=== PATIENT | male | born 1975 | race Caucasian/White ===

== ENCOUNTER → 2019-07-19 09:42 | Outpatient (CLI) | payer OTHER, SELFPAY | PROVIDERS: PCP Internal Medicine Adolescent Medicine; Visit Provider Internal Medicine Adolescent Medicine | DX: R06.09 Other forms of dyspnea (principal) | CPT/HCPCS: 94060; 94640; 94726; 94729 ==

== ENCOUNTER → 2021-08-02 12:52 | Outpatient (CLI) | payer OTHER, SELFPAY ==
[2021-08-03 08:58] LABS: Covid-19 Nasal PCR Sendout Lex NOT DETECTED
== END ==
PROVIDERS: Visit Provider Nurse Practitioner
DX: Z20.822 Contact with and (suspected) exposure to COVID-19 (principal)
CPT/HCPCS: C9803; U0004; U0005

== ENCOUNTER 2021-12-21 08:52 | Emergency (ER) | payer SELFPAY ==
[2021-12-21] VITALS (9 sets, daily range): BP systolic 122–140; BP diastolic 65–90; PULSE 56–90; RESP 15–18; TEMP 36.6–37.1; O2SAT 97–99; BMI 24.4
--- NOTE | 2021-12-21 08:50 | ECG_ITS ---
APPROVED REPORT Exam: Resting ECG HR:87 bpm ECG Measurements Heart Rate 87 AXES NJ 158 P 74 QRSd 92 QRS 87 QT 355 T 57 QTc 400 Conclusion SINUS RHYTHM NORMAL ECG UNCONFIRMED REPORT Electronically signed by : Gurwinder Chandra MD 12/21/2021 17:00:02
--- NOTE | 2021-12-21 08:53 | [facility].EDCP ---
ED Disposition Clinical Impression: Chest pain Qualifiers: Chest pain type: unspecified Qualified Code(s): R07.9 - Chest pain, unspecified Amphetamine adverse reaction Qualifiers: Encounter type: initial encounter Qualified Code(s): T43.625A - Adverse effect of amphetamines, initial encounter Disposition: Home, Self-Care Condition on Discharge: Fair Instructions: DI for Atypical Chest Pain, Getting Treatment for Substance Use Disorder, DI for Substance Use Disorder Referrals: Sravan Matute MD [Staff Physician] - - Critical Care Critical Care Time: No Attestation: On , the high probability of a clinically significant, sudden or life threatening deterioration of the following system(s) required my full and direct attention, intervention and personal management. The time I documented below is in addition to time spent performing reported procedures but includes the following listed in this critical care notation. Medical Decision Making - Medical Records Medical records reviewed: Yes: I reviewed the patient's medical records. - Shay Inquiry Pt receiving controlled substance: No Vital Signs: 12/21/21 08:52 12/21/21 09:08 12/21/21 09:38 Temperature 98.8 F Temperature Source Oral Pulse Rate 84 71 Pulse Rate [Radial] 90 Respiratory Rate 16 16 17 Blood Pressure 140/85 125/74 Blood Pressure [Right Radial Artery] 131/90 Blood Pressure Mean 103 91 Blood Pressure Mean [Right Radial Artery] 103 Blood Pressure Source Automatic Cuff Automatic Cuff Blood Pressure Position Sitting Sitting Blood Pressure Position [Right Radial Artery] Sitting 02 Sat by Pulse Oximetry 98 97 97 Oxygen Delivery Method Room Air Room Air Room Air 12/21/21 10:08 12/21/21 10:38 12/21/21 11:08 Temperature Temperature Source Pulse Rate 66 Pulse Rate [Radial] Respiratory Rate 16 17 18 Blood Pressure 134/77 127/74 135/84 Blood Pressure [Right Radial Artery] Blood Pressure Mean 90 89 96 Blood Pressure Mean [Right Radial Artery] Blood Pressure Source Automatic Cuff Automatic Cuff Blood Pressure Position Blood Pressure Position [Right Radial Artery] 02 Sat by Pulse Oximetry 99 98 98 Oxygen Delivery Method Room Air Room Air Room Air - Lab Data Lab results reviewed: Yes: I reviewed the patient's lab results. Lab Results 12/21/21 09:00: WBC 8.5, RBC 4.42 L, Hgb 14.1, Hct 39.6 L, MCV 89.7, MCH 31.9 H, MCHC 35.6 H, RDW 12.4, Plt Count 197, MPV 8.7, Neut % (Auto) 58.0, Lymph % (Auto) 30.7, Eddy % (Auto) 6.6, Eos % (Auto) 3.9, Baso % (Auto) 0.7, Neut # (Auto) 5.0, Lymph # (Auto) 2.6, Eddy # (Auto) 0.6, Eos # (Auto) 0.3, Baso # (Auto) 0.1 12/21/21 09:00: PT 10.9, INR 0.96, APTT 26.8 12/21/21 09:00: Sodium 140, Potassium 3.5, Chloride 108 H, Carbon Dioxide 25, Anion Gap 10.5, BUN 20, Creatinine 0.70, Estimated Creat Clear 146, Estimated GFR 121, Est GFR ( Amer) 146, Glucose 99, Calcium 9.0, Total Bilirubin 0.5, AST 26, ALT 20, Alkaline Phosphatase 86, Troponin I < 0.01, NT-Pro-B Natriuret Pep 11.5, Total Protein 6.7, Albumin 4.2, Globulin 2.5, Albumin/Globulin Ratio 1.7 12/21/21 09:03: Urine Color Yellow, Urine Appearance Clear, Urine pH 5.5, Ur Specific [place] >= 1.030, Urine Protein Negative, Urine Glucose (UA) Negative, Urine Ketones Negative, Urine Blood Negative, Urine Nitrate Negative, Urine Bilirubin Negative, Urine Urobilinogen 0.2, Ur Leukocyte Esterase Negative, Urine RBC None, Urine WBC Occasional, Ur Squamous Epith Cells Occasional, Urine Bacteria Trace, Urine Mucus 1+ 12/21/21 09:03: Urine Opiates Screen Negative, Urine Methadone Screen Negative, Ur Barbituates Screen Negative, Ur Phencyclidine Scrn Negative, Ur Amphetamines Screen Positive H, U Benzodiazepines Scrn Negative, Urine Cocaine Screen Negative, U Marijuana (THC) Screen Negative 12/21/21 11:08: Troponin I < 0.01 Result diagrams: 12/21/21 09:00 12/21/21 09:00 Orders (Tests/Meds): ED MEDICATIONS Generic Name Dose Route Start
--- NOTE | 2021-12-21 08:54 | PC.NURSE ---
SON LARA at
--- NOTE | 2021-12-21 08:56 | XR_ITS ---
FINAL REPORT CLINICAL HISTORY: CP, pt states that he has been experiencing chest pain, numbness in his left arm, and SOA starting this morning. Smoker FINDINGS: SINGLE-VIEW CHEST The heart size is normal. The mediastinum is normal. The lungs are clear. There is no pneumothorax. IMPRESSION: No acute cardiopulmonary process. Reviewed, Interpreted and Dictated by Ron Bryant III, MD Transcribed by Isabelle Lucero Authenticated and [facility]
--- NOTE | 2021-12-21 08:59 | PC.NURSE ---
ER at updating patient regarding EKG results
--- NOTE | 2021-12-21 09:01 | PC.NURSE ---
pt ambulatory to restroom without complications to provide UA
--- NOTE | 2021-12-21 09:04 | PC.NURSE ---
pt ambulatory back to ED room 7 without complications; Radiology at BS; UA sent to lab
[2021-12-21 09:09] LABS: Microscopic, Urine URINE MICROSCOPIC (MICROSCOPIC)
--- NOTE | 2021-12-21 09:10 | PC.NURSE ---
pt offered warm blankets, pt declined
[2021-12-21 09:12] LABS: Appearance,Urine CLEAR (Clear); Bilirubin,Urine Negative (Negative); Blood, Urine Negative (Negative); Color,Urine YELLOW (Yellow); Glucose,Urine (UA) Negative (Negative); Ketones,Urine Negative (Negative); Leukocyte Esterase,Urine Negative (Negative); Nitrate,Urine Negative (Negative); PH,Urine 5.5 (5.0-8.5); Protein,Urine Negative (Negative); Specific Gravity, Urine >= 1.030 (1.005-1.030); Urobilinogen,Urine 0.2 EU/dl (0.2)
[2021-12-21 09:15] LABS: Basophils # 0.1 K/mm3 (0-0.2); Basophils % 0.7 % (0.1-2.0); Eosinophils # 0.3 K/mm3 (0.0-0.4); Eosinophils % 3.9 % (0.1-12.0); Hematocrit 39.6 % (42.0-52.0); Hemoglobin 14.1 g/dL (14.1-18.0); Lymphocytes # 2.6 K/mm3 (0.7-4.5); Lymphocytes % 30.7 % (10-50); Mean Corpuscular HGB Conc 35.6 g/dL (31.8-35.4); Mean Corpuscular Hemoglobin 31.9 pg (27.0-31.2); Mean Corpuscular Volume 89.7 fl (80-94); Mean Platelet Volume 8.7 fl (7.4-10.4); Monocytes # 0.6 K/mm3 (0.1-1.0); Monocytes % 6.6 % (1.7-9.3); Platelet Count 197 K/mm3 (142-424); Red Blood Count 4.42 M/mm3 (4.60-6.20); Red Cell Distribution Width 12.4 % (11.5-17.5); White Blood Count 8.5 K/mm3 (4.8-10.8)
[2021-12-21 09:23] LABS: Chloride 108 mmol/L (98-107); Potassium 3.5 mmoL/L (3.5-5.1); Sodium 140 mmol/L (136-145)
[2021-12-21 09:25] LABS: Blood Urea Nitrogen 20 mg/dl (9-20); Creatinine Clearance Estimated 146 mL/min (50-200); Estimated Glomerular Filt Rate 121 ml/min (>60); GFR (African American) 146 ML/MIN (>60)
[2021-12-21 09:26] LABS: Alanine Aminotransferase 20 U/L (12-78); Albumin Level 4.2 g/dl (3.5-5.0); Albumin/Globulin Ratio 1.7 (1.1-1.8); Alkaline Phosphatase 86 U/L (38-126); Anion Gap 10.5 mEq/L (5-15); Aspartate Amino Transferase 26 U/L (17-59); Bilirubin,Total 0.5 mg/dl (0.2-1.3); Carbon Dioxide 25 mmol/L (22.0-30.0); Globulin 2.5 g/dL (1.3-3.2); Glucose 99 mg/dl (74-100); Total Protein,Serum 6.7 g/dl (6.3-8.2)
[2021-12-21 09:27] LABS: Barbiturates Screen,Urine Negative ng/ml (<200); Benzodiazepines Screen,Urine Negative ng/ml (<200)
[2021-12-21 09:28] LABS: Activated Partial Thrombo Time 26.8 seconds (22.8-30.6); INR 0.96 (0.9-1.1); Prothrombin Time 10.9 seconds (10.1-12.5)
[2021-12-21 09:28] LABS: Amphetamine/Metha Screen,Urine Positive ng/ml (<1000)
[2021-12-21 09:29] LABS: Cannabinoid Screen,Urine Negative ng/ml (<50); Cocaine Screen,Urine Negative ng/ml (<300)
[2021-12-21 09:30] LABS: Methadone Screen,Urine Negative ng/ml (<300)
[2021-12-21 09:31] LABS: Opiate Screen,Urine Negative ng/ml (<300); Phencyclidine Screen,Urine Negative ng/ml (<25)
[2021-12-21 09:33] LABS: Squamous Epithelial Cell,Urine Occasional #/hpf (0-5); WBC,Urine Occasional #/hpf (0-3)
[2021-12-21 09:34] LABS: Bacteria,Urine Trace /lpf; Mucus,Urine 1+ /lpf
[2021-12-21 09:36] LABS: NT Pro Brain Natriuretic Pep. 11.5 pg/mL (0-125)
--- NOTE | 2021-12-21 09:43 | PC.NURSE ---
pt is resting at this time; JAZZMINE Walsh rounded on patient and gave pt a warm blanket.
[2021-12-21 09:45] LABS: Troponin I < 0.01 ng/ml (0.00-0.034)
--- NOTE | 2021-12-21 10:00 | PC.NURSE ---
pt stated he needs to make a phone call, pt given phone.
--- NOTE | 2021-12-21 10:11 | PC.NURSE ---
ER MD at speaking with patient regarding update on POC
--- NOTE | 2021-12-21 10:30 | PC.NURSE ---
pt updated on plan of care
--- NOTE | 2021-12-21 10:53 | PC.NURSE ---
pt sleeping at this time
--- NOTE | 2021-12-21 11:31 | PC.NURSE ---
pt offers no c/o at present
[2021-12-21 11:54] LABS: Troponin I < 0.01 ng/ml (0.00-0.034)
--- NOTE | 2021-12-21 12:10 | PC.NURSE ---
ER MD at speaking with patient regarding update on POC
== END 2021-12-21 12:46 | disposition home or self-care (01) ==
PROVIDERS: Emergency Provider Emergency Medicine
DX: R07.9 Chest pain, unspecified (principal); T43.625A Adverse effect of amphetamines, initial encounter; F17.210 Nicotine dependence, cigarettes, uncomplicated
CPT/HCPCS: 71045; 80053; 80305; 81001; 83880; 84484; 85025; 85610; 85730; 93005; 99284